=== PATIENT | female | born 1985 | race African-American/Black ===

== ENCOUNTER 2020-02-11 21:28 | Emergency (ER) | payer BC ==
[~2020-02-11] VITALS: Ht 152.4 cm; Wt 44.0 kg
[2020-02-11] MEDS ORDERED: LIDOCAINE HCL/PF 1% 10 MG/ML 5ML VIAL IJ ONE (22:30)
[2020-02-11] MEDS ORDERED: BACITRACIN ZINC OINT UDPKT TOP ONE (22:30)
[2020-02-11 23:12] VITALS: BP 113/76
== END 2020-02-11 23:13 | disposition home or self-care (01) ==
LOC: ER 21:28
DX: S61.217A Laceration without foreign body of left little finger without damage to nail, initial encounter (principal); Z88.2 Allergy status to sulfonamides; Z88.6 Allergy status to analgesic agent; W26.8XXA Contact with other sharp object(s), not elsewhere classified, initial encounter; Y93.89 Activity, other specified; Y92.89 Other specified places as the place of occurrence of the external cause; Y99.8 Other external cause status
CPT/HCPCS: 12001; 99282; J3490